=== PATIENT | female | born 1990 | race Caucasian/White ===

== ENCOUNTER 2018-02-06 19:01 | Emergency (ER) | payer OTHER ==
[~2018-02-06] VITALS: Ht 162.5 cm; Wt 84.4 kg
[2018-02-06] MEDS ORDERED: PENICILLIN VK500 MG PO (19:10)
[2018-02-06] MEDS ORDERED: Peridex 473 ML473 ML PO (19:10)
[2018-02-06] MEDS ORDERED: NAPROSYN500 MG PO (19:10)
[2018-02-06] MEDS ORDERED: ZOFRAN4 MG PO (19:10)
== END 2018-02-06 19:21 | disposition home or self-care (01) ==
LOC: ED 19:01
DX: K02.9 Dental caries, unspecified (principal); R03.0 Elevated blood-pressure reading, without diagnosis of hypertension

== ENCOUNTER 2018-07-11 09:38 | Emergency (ER) | payer OTHER ==
[~2018-07-11] VITALS: Ht 162.5 cm; Wt 81.6 kg
[~2018-07-11 09:38] MED LIST: NAPROSYN500 MG PO; PENICILLIN VK500 MG PO; Peridex 473 ML473 ML PO; ZOFRAN4 MG PO
[2018-07-11] MEDS ORDERED: ZITHROMAX250 MG PO (09:58)
[2018-07-11] MEDS ORDERED: CLARITIN10 MG PO (09:58)
== END 2018-07-11 10:02 | disposition home or self-care (01) ==
LOC: ED 09:38
DX: J40 Bronchitis, not specified as acute or chronic (principal)

== ENCOUNTER 2020-07-30 17:10 | Emergency (ER) | payer OTHER ==
[~2020-07-30] VITALS: Ht 162.5 cm; Wt 83.5 kg
[~2020-07-30 17:10] MED LIST changes: +CLARITIN10 MG PO; +ZITHROMAX250 MG PO
[2020-07-30] MEDS ORDERED: KENALOG 0.025%15 GM T (17:37)
== END 2020-07-30 17:37 | disposition home or self-care (01) ==
LOC: ED 17:10
DX: R21 Rash and other nonspecific skin eruption (principal); F17.200 Nicotine dependence, unspecified, uncomplicated; Z79.2 Long term (current) use of antibiotics; Z79.899 Other long term (current) drug therapy

== ENCOUNTER 2022-01-02 22:43 | Emergency (ER) | payer OTHER ==
[~2022-01-02] VITALS: Ht 162.5 cm; Wt 72.6 kg
[~2022-01-02 22:43] MED LIST changes: +KENALOG 0.025%15 GM T
== END 2022-01-03 00:22 | disposition left against medical advice (07) ==
LOC: ED 22:43
DX: R05.9 Cough, unspecified (principal); Z53.21 Procedure and treatment not carried out due to patient leaving prior to being seen by health care provider

== ENCOUNTER 2023-10-20 19:29 | Emergency (ER) | payer OTHER ==
[~2023-10-20] VITALS: Ht 162.5 cm; Wt 88.0 kg
[2023-10-20 20:07] LABS: BASO # 0.1 10*3/uL (0.0-0.1); BASO % 0.7 % (0.0-1.0); EOS # 0.6 10*3/uL (0.0-0.4); EOS % 4.7 % (1.0-4.0); HEMATOCRIT 43.6 % (37.0-47.0); LYMPH % 40.6 % (27.0-41.0); MEAN CELL VOLUME 93.2 fl (81.0-99.0); MEAN CORPUSCULAR HGB 30.3 pg (27.0-31.0); MEAN CORPUSCULAR HGB CONC 32.6 g/dl (33.0-37.0); MONO # 0.8 10*3/uL (0.1-1.0); MONO % 6.9 % (3.0-9.0); NEUT # 5.7 10*3/uL (2.3-7.9); NEUT % 46.7 % (47.0-73.0); PLATELET COUNT AUTOMATED 408 10*3/uL (130-400); RED BLOOD COUNT 4.68 10*6/uL (4.10-5.10); RED CELL DISTRI WIDTH 12.5 % (0-14.5); WHITE BLOOD COUNT 12.2 10*3/uL (4.8-10.8)
[2023-10-20 20:23] LABS: ALKALINE PHOSPHATASE 69 U/L (46-116); BUN 8 mg/dl (9-23); CHLORIDE 107 mmol/L (98-107); LIPASE 48 U/L (12-53); POTASSIUM 3.8 mmol/L (3.4-5.1); SGPT/ALT 27 U/L (5-49); TOTAL PROTEIN 6.8 gm/dL (6.0-8.0)
[2023-10-20] MEDS ORDERED: Ketorolac Tromethamine 60 MG/2 ML VIAL IM ONE (21:10)
[2023-10-20] MEDS ORDERED: MIRALAX POWDER17 G1 PO (21:13)
== END 2023-10-20 21:31 | disposition home or self-care (01) ==
LOC: ED 19:29
PROVIDERS: Internal Medicine
DX: R14.1 Gas pain (principal); D35.02 Benign neoplasm of left adrenal gland; K59.00 Constipation, unspecified; D72.89 Other specified disorders of white blood cells; R10.11 Right upper quadrant pain